=== PATIENT | female | born 2000 | race Caucasian/White ===

== ENCOUNTER → 2022-04-18 08:58 | Outpatient (CLI) | payer OTHER, SELFPAY ==
--- NOTE | ~2022-04-18 | US_ITS ---
US OB /maternal detail DATE: 04/18/2022 09:38 INDICATION: anatomy screen TECHNIQUE: Real-time imaging and Doppler analysis COMPARISON: None FINDINGS: Live shields intrauterine gestation, fetus in transverse lie, vertex presentation. Organizational Effectiveness Director ior placenta, lower margin 6.6 cm above the cervix. Cervix measures approximately 4.8 cm length. Subjectively normal amount of amniotic fluid. movement was observed. heart rate of 144 bpm. 4 chamber heart with normal left and right ventricular outflow tracts. diaphragm is intact. Fluid is demonstrated in the stoma ch and urinary bladder. kidneys are unremarkable, without hydronephrosis. Three-vessel umbilical cord with normal insertion at abdominal wall. No cerebral ventriculomegaly. The spine appears intact on transverse and longitudinal vie ws. cerebellum appears normal. nose and lips appear normal.. 4 extremities. Biparietal diameter 5.44 cm; 22 weeks 4 days Head circumference 20.52 cm; 22 weeks 4 days Abdominal circumference 16.60 cm; 21 weeks 4 days Femur length 3.73 cm; 21 weeks 6 days Composite age by Hadlock formula is 22 weeks 1 day +/- 1 week 4 days with LUCRECIA of 08/31/2022, compared to 08/28/2022 by LMP. Estimated weight is 457 +/- 68.5 g. Estimated weight GP: 81.9% Head circumference/abdominal circumference 1.24, just above normal range of 1.05- 1.23 Femur length/head circumference 18.18, slightly below normal range of 18.51-20.29 IMPRESSION: Normal anatomy screen Estimated gestational age is 22 weeks 1 day +/- 1 week 4 days, with LUCRECIA of 08/31/2022 Reviewed, dictated and finalized at [facility]. Reviewed, dictated and finalized at [facility]. [employer]
== END ==
PROVIDERS: PCP Obstetrics & Gynecology Gynecologic Oncology; Visit Provider Obstetrics & Gynecology Gynecologic Oncology
DX: Z36.9 Encounter for antenatal screening, unspecified (principal)
CPT/HCPCS: 76805

== ENCOUNTER 2023-04-22 16:22 | Emergency (ER) | payer OTHER, SELFPAY ==
--- NOTE | ~2023-04-22 | XR_ITS ---
EXAM: XR ankle LT min 3V DATE: 04/22/2023 16:52 HISTORY: rolled left ankle today; swelling and pain laterally . COMPARISON: None available. FINDINGS: Normal mineralization. No fracture or dislocation. No lytic or blastic lesion. Joint space s are maintained. No erosion or periosteal change. Soft tissues within normal limits. IMPRESSION: No acute osseous finding in the left ankle. Reviewed, dictated and finalized at [facility]. [employer]
[2023-04-22 16:26] VITALS: BP 135/99; PULSE 88; RESP 18; TEMP 36.7; O2SAT 100
--- NOTE | 2023-04-22 17:17 | ED.LOWEXIN ---
HPI - Extremity Injury (Lower) General Chief Complaint: Extremity Injury, Lower Stated Complaint: Ankle sprain Time Seen by Provider: 04/22/23 16:37 Source: patient Mode of arrival: ambulatory Limitations: no limitations History of Present Illness HPI Narrative: Patient is a 23 y/o female who presents to the ED with c/o L ankle pain. Patient reports she was standing on a log trying to break it in half when her jumped on the other side of the log and she fell rolling her left ankle inward. She complains of significant pain to her left outer ankle since then. Difficulty ambulating due to the pain. She took ibuprofen prior to arrival. Denies any numbness. Denies knee or foot pain. Denies head injury or LOC. Related Data Home Medications Medication Instructions Recorded Confirmed No Home Medications 06/16/20 06/16/20 Allergies Allergy/AdvReac Type Severity Reaction Status Date / Time No Known Allergies Allergy Verified 04/22/23 16:43 Review of Systems Review of Systems: CONSTITUTIONAL: Denies fever, chills, or sweats. MUSCULOSKELETAL: see HPI. NEUROLOGIC: Denies tingling, numbness, or weakness. All systems reviewed & are unremarkable except as noted in HPI and below PMFSH Family History Family History Other Depression Family history of arthritis Family history of cardiovascular disease Family history of mental disorder Heart disease Social History Social History Smoking packs per day: 0.5 Smoking cigarettes per day: 10.0 Years smoked: 7 Smoking pack-years: 3.50 Smoking status: Current every day smoker Tobacco type: cigarettes Second hand tobacco smoke exposure: No Alcohol intake: current Alcohol use details: 3 x month Substance use: former Substance use type: marijuana and prescription drug Living arrangements: alone Additional living arrangements comments: in an apartment with her daughter Occupation/Education: occupation Additional occupation/education comments: 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 RESPIRATORY: Airway patent, respirations nonlabored. CARDIOVASCULAR: Regular rate and rhythm. Pedal pulses 2+ and equal bilaterally. MUSCULOSKELETAL: Moves all extremities. Limited flexion ROM of L ankle d/t pain. Swelling noted to lateral malleolus with Diffuse tenderness, extending over anterior foot. Sensation intact. Good capillary refill. No significant tenderness over medial malleoli. SKIN: Warm, dry, normal color. No rashes. NEURO: A&O X3. Speech clear. Cranial nerves II-XII grossly intact. No ataxic movements. PSYCHIATRIC: Appropriate mood and affect. Normal interaction. Course Vital Signs Vital signs: Vital Signs Temperature 98.1 F 04/22/23 16:26 Pulse Rate 88 04/22/23 16:26 Respiratory Rate 18 04/22/23 16:26 Blood Pressure 135/99 H 04/22/23 16:26 Pulse Oximetry 100 04/22/23 16:26 Temperature 98.1 F 04/22/23 16:26 Pulse Rate 88 04/22/23 16:26 Respiratory Rate 18 04/22/23 16:26 Blood Pressure 135/99 H 04/22/23 16:26 Pulse Oximetry 100 04/22/23 16:26 MDM - Extremity Injury (Lower) MDM Narrative Medical decision making narrative: Patient?s injury is consistent with musculoskeletal etiology. No signs of neurologic or vascular compromise on physical examination. Compartments are soft without signs of compartment syndrome. XR Without evidence for fracture. Imaging was reviewed by myself. Pain is consistent with exam and injury. Consistent with ankle sprain. Patient is felt to be stable fo
[2023-04-22] MEDS: HYDROcodone/acetaminophen (*CRX) 5-325 MG TABLET 1 TAB PO (17:35)
== END 2023-04-22 17:52 | disposition home or self-care (01) ==
LOC: ANHED 17:30
PROVIDERS: Emergency Provider Physician Assistant; PCP Obstetrics & Gynecology Gynecologic Oncology
DX: S93.402A Sprain of unspecified ligament of left ankle, initial encounter (principal); F17.210 Nicotine dependence, cigarettes, uncomplicated; W17.89XA Other fall from one level to another, initial encounter
CPT/HCPCS: 73610; 99283; A9270